=== PATIENT | female | born 1985 | race Caucasian/White ===

== ENCOUNTER 2023-04-08 13:58 | Emergency (ER) | payer MEDICAID ==
[~2023-04-08] VITALS: Ht 162.6 cm; Wt 80.1 kg
[~2023-04-08 13:58] MED LIST: IBUP-1574 PO; ONDA8TAB6 PO
[2023-04-08 16:01] LABS: STREP A SCREEN NEGATIVE (Neg)
[2023-04-08 17:06] VITALS: BP 134/89; PULSE 69; RESP 15; TEMP 98.2; O2SAT 100
== END 2023-04-08 17:08 | disposition home or self-care (01) ==
LOC: ER 13:59
DX: J02.9 Acute pharyngitis, unspecified (principal); Z87.448 Personal history of other diseases of urinary system; Z79.899 Other long term (current) drug therapy
CPT/HCPCS: 87081; 87880; 99283

== ENCOUNTER 2023-05-31 13:13 | Emergency (ER) | payer OTHER, MEDICAID ==
[~2023-05-31] VITALS: Ht 162.6 cm; Wt 81.0 kg
[2023-05-31 14:25] VITALS: TEMP 98.2
[2023-05-31] MEDS: dexamethasone sod phosphate 10mg/ml inj IM STA (17:38)
[2023-05-31] MEDS: ketorolac trometh inj. 60 MG/2 ML VIAL IM ONE (17:38)
[2023-05-31] MEDS: HYDROcodone/acetaminophen 5mg/325mg tablet PO ONE (17:39)
[2023-05-31] MEDS: cyclobenzaprine 10mg tablet PO ONE (17:39)
[2023-05-31] MEDS ORDERED: IBUP-1984 PO (18:23)
[2023-05-31] MEDS ORDERED: CYCL-1 PO (18:23)
[2023-05-31 18:55] VITALS: BP 130/74; PULSE 72; RESP 17; O2SAT 99
== END 2023-05-31 19:03 | disposition home or self-care (01) ==
LOC: ER 13:14
DX: M54.2 Cervicalgia (principal); M54.59 Other low back pain; H93.13 Tinnitus, bilateral; Z87.448 Personal history of other diseases of urinary system; Z56.0 Unemployment, unspecified
CPT/HCPCS: 72050; 96372; 99284; J1100; J1885

== ENCOUNTER 2023-06-03 12:54 | Emergency (ER) | payer MEDICAID ==
[~2023-06-03] VITALS: Ht 162.6 cm; Wt 79.1 kg
[~2023-06-03 12:54] MED LIST changes: +CYCL-1 PO; +IBUP-1984 PO
[2023-06-03 12:58] VITALS: BP 134/81; PULSE 85; RESP 16; TEMP 98; O2SAT 100
== END 2023-06-03 14:14 | disposition left against medical advice (07) ==
LOC: ER 12:56
DX: Z04.1 Encounter for examination and observation following transport accident (principal); Z53.21 Procedure and treatment not carried out due to patient leaving prior to being seen by health care provider
CPT/HCPCS: 99281

== ENCOUNTER 2023-06-15 18:11 | Emergency (ER) | payer MEDICAID ==
[~2023-06-15] VITALS: Ht 162.6 cm; Wt 82.4 kg
[2023-06-15] MEDS ORDERED: ketorolac tromethamine 15mg/ml inj. IM ONE (20:00)
[2023-06-15 20:07] LABS: STREP A SCREEN NEGATIVE (Neg)
[2023-06-15 20:28] LABS: MONOTEST NEGATIVE (Neg)
[2023-06-15] MEDS: dexamethasone sod phosphate 10mg/ml inj PO STA (20:43)
[2023-06-15] MEDS: ketorolac trometh inj. 60 MG/2 ML VIAL IM STA (20:43)
[2023-06-15] MEDS ORDERED: PRED20TA PO (20:51)
[2023-06-15] MEDS ORDERED: LIDO20SO16 PO (20:51)
[2023-06-15 20:52] VITALS: BP 119/75; PULSE 65; RESP 16; TEMP 98; O2SAT 98
== END 2023-06-15 22:01 | disposition home or self-care (01) ==
LOC: ER 18:12
DX: J02.9 Acute pharyngitis, unspecified (principal); Z20.822 Contact with and (suspected) exposure to COVID-19; Z56.0 Unemployment, unspecified; Z79.899 Other long term (current) drug therapy
CPT/HCPCS: 36415; 86308; 87081; 87880; 96372; 99283; J1100; J1885